=== PATIENT | male | born 1960 | race Caucasian/White ===

== ENCOUNTER 2024-03-05 09:00 | Outpatient (CLI) | payer MEDICAID, SELFPAY ==
--- NOTE | 2024-03-05 09:06 | USCV_ITS ---
Carroll Solares Age: 63 Gender: M : 1960 Exam Date: 03/05/2024 09:12 Ordering Phys: Laura Calhoun DO Technologist: USR Exam Location: [facility] [place] Indication: HTN Aortic Velocity @ SMA (cm/s) 98.4 RIGHT KIDNEY LEFT KIDNEY Velocity (cm/s) Velocity (cm/s) Sys/Foster Sys/Foster Resistive Index Resistive Index 83.2 / 24.0 0.71 Proximal Renal Artery 129.8 / 37.7 0.71 69.8 / 18.3 0.74 Mid Renal Artery 80.0 / 24.3 0.70 45.9 / 14.6 0.68 Distal Renal Artery 75.6 / 20.1 0.73 92.5 / 27.6 0.70 Hilar 60.5 / 17.7 0.71 30.9 / 8.5 0.72 Upper Pole 54.3 / 16.0 0.71 36.5 / 9.2 0.75 Mid Pole 51.8 / 14.8 0.71 26.4 / 6.2 0.74 Lower Pole 47.1 / 15.9 0.66 0.85 Renal Aortic Ratio 1.32 Accleration Time (sec) 475.30 Hilar 258.90 388.90 Upper Pole 383.20 381.80 Mid Pole 284.50 142.70 Lower Pole 478.50 12.5 Kidney Length (cm) 11.7 FINDINGS No comparison. No evidence of abdominal aortic aneurysm. There is no evidence of hemodynamically significant right renal artery stenosis. There is no evidence of hemodynamically significant left renal artery stenosis. No renal atrophy. CONCLUSIONS There is no sonographic evidence of hemodynamically significant renal artery stenosis bilaterally. Dr. Guillermina Kaur DO (Electronically Signed) Final Date: 06 March 2024 13:55 S
== END 2024-03-05 09:04 | disposition home or self-care (01) ==
PROVIDERS: PCP Family Medicine; Visit Provider Family Medicine
DX: I1A.0 Resistant hypertension (principal)
CPT/HCPCS: 93975